=== PATIENT | male | born 1995 | race Caucasian/White ===

== ENCOUNTER 2019-01-04 12:17 | Emergency (ER) | payer OTHER ==
[2019-01-04 12:28] VITALS: BP 123/79
--- NOTE | 2019-01-04 13:32 | ER Document Report ---
HPI - HPI Time Seen by Provider: 01/04/19 13:20 Pain Level: 5 Notes: Patient is a 23-year-old male who presents for wound recheck status post injury to the left foot yesterday evening. Patient states that he had a bunionectomy performed yesterday morning at [facility] and bumped his foot causing some bleeding through his bandage. Patient was concerned that he may have broke a stitch and wanted evaluated. He has no other concerns or complaints. Denies drug allergies. Denies any headache, fever, URI, sore throat, chest pain, palpitations, syncope, cough, shortness of breath, wheeze, dyspnea, abdominal pain, nausea/vomiting/diarrhea, urinary retention, dysuria, hematuria, loss of control of bowel or bladder, numbness/tingling, saddle anesthesia, muscle paralysis/weakness, or rash. - ROS Systems Reviewed and Negative: Yes All other systems reviewed and negative Past Medical History - Social History Smoking Status: Unknown if Ever Smoked Family History: Reviewed & Not Pertinent Vertical Provider Document - CONSTITUTIONAL Agree With Documented VS: Yes Notes: PHYSICAL EXAMINATION: GENERAL: Well-appearing, well-nourished and in no acute distress. LUNGS: Breath sounds clear to auscultation bilaterally and equal. No wheezes ra les or rhonchi. HEART: Regular rate and rhythm without murmurs, rubs, gallops. Musculoskeletal: FROM to passive/active. Strength 5+/5. Extremities: No cyanosis, clubbing, or edema b/l. Peripheral pulses 2+. Capillary refill less than 3 seconds. NEUROLOGICAL: Cranial nerves grossly intact. Normal speech, normal gait. Normal sensory, motor exams PSYCH: Normal mood, normal affect. SKIN: Left foot: the wound appears intact with a small area of bleeding scant noted. Wound edges are still in very early stages of healing as they were placed yesterday. No significant erythema or warmth. No purulent discharge. the sutures remain intact. Course - Re-evaluation Re-evalutation: 01/04/19 13:30 Patient is an afebrile, well-hydrated, 23-year-old male who presents for wound recheck. Vitals are acceptable without significant tachycardia, tachypnea, or hypoxia. PE is otherwise unremarkable for any neurovascular compromise, septic joint, or wound infection. Patient is nontoxic-appearing is tolerating p.o. without difficulty. Wound dressing was removed and replaced without any complications. No further work-up warranted. Patient to contact his surgeon on Sunday. Return to the ED with any other worsening/concerning symptoms. Patient is in agreement. - Vital Signs Vital signs: Temp Pulse Resp BP Pulse Ox 98.6 F 98 16 123/79 96 01/04/19 12:26 01/04/19 12:26 01/04/19 12:01/04/19 12:01/04/19 12:26 Discharge - Discharge Clinical Impression: Encounter for wound re-check Condition: Stable Disposition: HOME, SELF-CARE Additional Instructions: Tylenol/Motrin if needed Monitor for any worsening symptoms Contact your surgeon on Sunday for recheck Recheck with your PCM in 3-5 days Return to the ED with any worsening symptoms and/or development of fever, headache, chest pain, palpitations, syncope, shortness of breath, trouble breathing, abdominal pain, n/v/d, abscess, purulent discharge, red streaks, worsening swelling, or other worsening symptoms that are concerning to you. Referrals: Mirna Mtz [Other] - 01/06/19
== END 2019-01-04 13:47 | disposition home or self-care (01) ==
LOC: ER 12:17
DX: Z48.01 Encounter for change or removal of surgical wound dressing (principal)
CPT/HCPCS: 99282